=== PATIENT | female | born 1960 | race Caucasian/White ===

== ENCOUNTER 2017-01-19 07:16 | Day surgery (SDC) | payer OTHER ==
--- NOTE | ~2017-01-19 | EGD ---
EGD REPORT [facility] [address] [place] [address] NAME: LUCILLE CONNELLY : 60 STATUS : REG [facility] [place] PAT#: [id number] AGE: 56 ADM/REG DATE : 01/19/17 MR#: [id number] REPORT SERV DATE: 01/19/17 DICTATED BY: GURPREET TEIXEIRA DATE: 01/19/17 REPORT STATUS : Draft TRANSCRIBED BY: [facility] DATE: 01/19/17 Endoscopy Center Patient Name: Lucille Connelly Date of : 1960 Attending MD: GURPREET TEIXEIRA, Procedure Date No Time: 01/19/2017 Procedure: Upper EUS Indications: Suspected mass in pancreas on CT scan (area in tail of different appearance than rest of pancreas). Also some bloating Referring MD: Hallie SINGH MD Medicines: Monitored Anesthesia Care Complications: No immediate complications. Estimated blood loss: None. Procedure: Pre-Anesthesia Assessment: - ASA Grade Assessment: III - A patient with severe systemic disease. After obtaining informed consent, the endoscope was passed under direct vision. Throughout the procedure, the patient's blood pressure, pulse, and oxygen saturations were monitored continuously. The GIF [id number] was introduced through the mouth, and advanced to the second part of duodenum. The Endoscope was introduced through the mouth, and advanced to the second part of duodenum. Findings: Endoscopic Finding : The examined esophagus was endoscopically normal. The entire examined stomach was endoscopically normal. The cardia and gastric fundus were normal on retroflexion. The examined duodenum was normal. Biopsies were taken with a cold forceps for histology. Verification of patient identification for the specimen was done. Estimated blood loss was minimal. Endosonographic Finding : Pancreatic parenchymal abnormalities were noted in the entire pancreas. These consisted of diffuse echogenicity consistent with fatty infilatration. Endosonographic imaging of the pancreas showed no mass and no pancreatic duct changes. There was no sign of significant endosonographic abnormality in the common bile duct. An unremarkable gallbladder was identified. No lymphadenopathy seen. There was no sign of significant endosonographic abnormality in the examined duodenum. Endosonographic images of the stomach were unremarkable. EGD REPORT [address] [address] NAME: LUCILLE CONNELLY : 60 STATUS : REG [facility] [place] PAT#: [id number] AGE: 56 ADM/REG DATE : 01/19/17 MR#: [id number] REPORT SERV DATE: 01/19/17 DICTATED BY: GURPREET TEIXEIRA DATE: 01/19/17 REPORT STATUS : Draft TRANSCRIBED BY: [employer] DATE: 01/19/17 There was no sign of significant endosonographic abnormality in the esophagus. Impression: - Normal esophagus. - Normal stomach. - Normal examined duodenum. Biopsied. - Pancreatic parenchymal abnormalities consisting of diffuse echogenicity were noted in the entire pancreas. - There was no sign of significant pathology in the common bile duct. - There was no sign of significant pathology in the examined duodenum. - Endosonographic images of the stomach were unremarkable. - There was no sign of significant pathology in the esophagus. Recommendation: - Return to previous diet. - Continue present medications. - Return to referring physician. Procedure Code(s): --- Professional --- 41153, Esophagogastroduodenoscopy, flexible, transoral; with endoscopic ultrasound examination, including the esophagus, stomach, and either the duodenum or a surgically altered stomach where the jejunum is examined distal to the anastomosis 23273, 59, Esophagogastroduodenoscopy, flexible, transoral; with biopsy, single or multiple Diagnosis Code(s): --- Professional --- K86.9, Disease of pancreas, unspecified R93.3, Abnormal findings on diagnostic imaging of other parts of digestive tract CPT copyright 2013 [employer]. All rights reserved. The codes documented in this report are preliminary and upon associate brand manager review may be revised to meet current compliance requirements. GURPREET TEIXEIRA, 01/19/2017 11:01 AM Number of Addenda: 0 Note Initiated On: 01/19/2017 10:28 AM EGD REPORT [facility] [address] [address] NAME: LUCILLE CONNELLY : 60 STATUS : REG [facility] [place] PAT#: [id number] AGE: 56 ADM/REG DATE : 01/19/17 MR#: [id number] REPORT SERV DATE: 01/19/17 DICTATED BY: GURPREET TEIXEIRA DATE: 01/19/17 REPORT STATUS : Draft TRANSCRIBED BY: [employer] DATE: 01/19/17 Scope Withdrawal Time 0 hours 0 minutes 0 seconds [address] [address]
[~2017-01-19 07:16] MED LIST: *DENIES; BETAPACE80 PO; ELIQUIS 5 MG TAB5 MG PO; IMDUR30 PO
[2017-01-19 08:02] LABS: ALBUMIN 4.3 G/DL (3.5-5.0); ALKALINE PHOSPHATASE 91 U/L (45-117); BUN (BLOOD UREA NITROGEN) 10 MG/DL (6-23); CHLORIDE, SERUM 108 MMOL/L (96-112); CO2 (CARBON DIOXIDE) 30 MMOL/L (24-34); CREATININE 0.64 MG/DL (0.55-1.02); GFR AFRICAN AMERICAN 116 ML/MIN (>=60); GFR NON AFRICAN AMERICAN 100 ML/MIN (>=60); GLUCOSE, SERUM 111 MG/DL (60-99); POTASSIUM, SERUM 3.8 MMOL/L (3.5-5.3); SGOT(AST) 18 U/L (5-40); SGPT(ALT) 26 U/L (5-65); SODIUM, SERUM 143 MMOL/L (135-148); TOTAL BILIRUBIN 0.3 MG/DL (0-1.2)
[2017-01-19 08:03] LABS: DIRECT BILIRUBIN < 0.1 MG/DL (0.0-0.4); INDIRECT BILIRUBIN(NOT ORDER) 0.2 MG/DL (0.1-0.9)
[2017-03-24] MEDS ORDERED: MACROBID PO (23:17)
[2017-03-24] MEDS ORDERED: CLOTRIM/BETA TOP (23:17)
[2017-03-24] MEDS ORDERED: SORINE80 MG PO (23:18)
[2017-03-24] MEDS ORDERED: CARD30 PO (23:21)
[2017-03-24] MEDS ORDERED: ELIQUIS 5 MG TAB5 MG PO (23:22)
== END 2017-01-19 23:59 | disposition home or self-care (01) ==
LOC: DMU 07:16
PROVIDERS: Anesthesiology; Internal Medicine Gastroenterology
PROC: 0DJ08ZZ Inspection of Upper Intestinal Tract, Via Natural or Artificial Opening Endoscopic (ICD-10-PCS; 2017-01-19)
PROC: BD47ZZZ Ultrasonography of Gastrointestinal Tract (ICD-10-PCS; 2017-01-19)
PROC: 0DB98ZX Excision of Duodenum, Via Natural or Artificial Opening Endoscopic, Diagnostic (ICD-10-PCS; principal; 2017-01-19 10:30)
DX: K86.9 Disease of pancreas, unspecified (principal); Z79.899 Other long term (current) drug therapy; Z98.890 Other specified postprocedural states
CPT/HCPCS: 80048; 80076; 88305; C1725

== ENCOUNTER 2017-01-29 08:00 | Inpatient (IN) | payer OTHER ==
--- NOTE | ~2017-01-29 | TEE ---
Transesophageal Echocardiogram [facility] [address] [facility] [place]. [address] NAME: MAYA CONNELLY : 60 STATUS : ADM Ivan PAT#: [id number] AGE: 56 ADM/REG DATE : 01/29/17 MR#: [id number] REPORT SERV DATE: 01/29/17 DICTATED BY: HANS GALVAN DATE: 01/29/17 REPORT STATUS : Draft TRANSCRIBED BY: BRONWYN DATE: 01/29/17 TRANSESOPHAGEAL ECHOCARDIOGRAM-GUIDED CARDIOVERSION INDICATION: A 56-year-old woman with atrial flutter. PROCEDURE: After questions were answered and consents were signed, the patient was sedated with propofol per Anesthesia. The probe was placed in the mid esophagus, and images were obtained without difficulty. At the conclusion of the procedure, the probe was withdrawn. The patient was cardioverted with 200 joules of synchronized energy to sinus rhythm. No complications were noted. The patient is recovering in the short-stay unit. 2D INTERPRETATION: The left ventricular size and function is normal. The mitral valve opened adequately. No thrombus was noted in the left atrium nor the left atrial appendage, and there was good contractility of the left atrial appendage. The interatrial septum did appear to be intact. The right atrium was grossly normal. Tricuspid valve normal. No pericardial effusion noted. No atherosclerotic changes in the descending aorta or aortic arch. COLOR FLOW: Trace mitral, trace aortic and tricuspid regurgitation. No color flow was noted across the interatrial septum. DOPPLER: Doppler flow velocities in the left atrial appendage were greater than 40 cm/sec. CONCLUSION: 1. NORMAL LEFT VENTRICULAR SYSTOLIC FUNCTION WITH ESTIMATED LVEF OF 65%. 2. SUCCESSFUL CARDIOVERSION OF ATRIAL FLUTTER TO SINUS RHYTHM. FAMILIA/BRONWYN Hans Galvan M.D., Ph.D, F.A.C.C. / [id number] CC: Yevgeniy Castillo NP
--- NOTE | ~2017-01-29 | CN ---
Consultation Report [facility] [address] [place]. [address] NAME: LUCILLE CONNELLY : 60 STATUS : ADM Ivan PAT#: [id number] AGE: 56 ADM/REG DATE : 01/29/17 MR#: [id number] REPORT SERV DATE: 01/29/17 DICTATED BY: HAROLDO SCHWARTZ DATE: 01/29/17 REPORT STATUS : Draft TRANSCRIBED BY: MODL DATE: 01/29/17 ELECTROPHYSIOLOGY CONSULTATION DATE OF CONSULTATION: 01/29/2017 PRIMARY MOBILE EQUIPMENT OPERATOR: Dr. Ernesto Trejo. HISTORY OF PRESENT ILLNESS: Lucille Connelly is a 56-year-old female, I have seen in the office from electrophysiology standpoint. She has congenital heart disease, previous VSD, possible bicuspid aortic valve, and moderate mitral regurgitation. She was sent to [facility] for complex arrhythmia ablation and in November underwent ablation for typical as well as atypical AVNRT, counter-clockwise CTI flutter, atypical atrial flutter extending from the right atrial atriotomy, incision to the IVC as well as focal ablation of the low lateral RA and medial cavotricuspid isthmus. I had seen in her the office for EP followup, 01/26/2017 and she was doing well off antiarrhythmics and anticoagulation. She states that since that time, she had a sense of palpitations and arrhythmia. She has had heart rates up to 120 to 130 beats per minute. It was of vague pressure sensation in her chest associated with increased heart rate. She presents to the emergency room and found to be in atypical atrial flutter, intermittently conducting one-to-one, other times conducting with variable block. She is in no acute distress. No shortness of breath, orthopnea, or PND. PAST MEDICAL HISTORY: Congenital heart disease with previous surgery for VSD, but I believe her history is somewhat more complicated, but not clearly elucidated. Previous atrial arrhythmias as described above. HOME MEDICATIONS: Hydrochlorothiazide and aspirin. SOCIAL HISTORY: No smoking. FAMILY HISTORY: Reviewed, noncontributory. REVIEW OF SYSTEMS: As per the HPI. Otherwise, all other review of systems negative. PHYSICAL EXAMINATION: VITAL SIGNS: Blood pressure 137/86, pulse is 130, respiratory rate is 18. GENERAL: Appears stated age, no distress. EYES: Sclerae anicteric, no arcus senilis. MOUTH: Oral mucosa moist, lips acyanotic. NECK: Jugular venous pressure normal, no carotid bruits. LUNGS: Clear to auscultation bilaterally, normal inspiratory effort. CARDIAC: Regular, tachycardic rhythm, no murmurs, gallops or rubs. ABDOMEN: Soft, nondistended, nontender. EXTREMITIES: No edema. Consultation Report [address] [place]. [address] NAME: LUCILLE CONNELLY : 60 STATUS : ADM Ivan PAT#: [id number] AGE: 56 ADM/REG DATE : 01/29/17 MR#: [id number] REPORT SERV DATE: 01/29/17 DICTATED BY: HAROLDO SCHWARTZ DATE: 01/29/17 REPORT STATUS : Draft TRANSCRIBED BY: BRONWYN DATE: 01/29/17 SKIN: Warm and dry. NEURO/PSYCH: Alert and oriented, nonfocal, mood appropriate. LABORATORY AND DIAGNOSTIC STUDIES: ECG from 0727 hours this morning is atypical flutter with rate of 132 beats per minute, right bundle-branch block conduction pattern. ECG subsequent at 10:52 a.m. is atrial flutter with 3:2 AV block, right bundle-branch block conduction pattern, QTc 464. Sodium 139, potassium 3.9, creatinine 0.6. Hemoglobin is 12. Troponin negative. BNP 72. IMPRESSION: 1. Recurrent atypical atrial flutter. The patient had recent ablation. 2. Congenital heart disease with ventricular septal defect. 3. Right bundle-branch block conduction pattern. RECOMMENDATIONS: I reviewed the situation with the patient. We will begin Eliquis. Plan for ZOHREH cardioversion and low-dose sotalol 40 mg p.o. b.i.d. Plan for followup ECG with me in the office Wednesday. May be discharged to home from BP standpoint after cardioversion. CHELE/BRONWYN Haroldo Schwartz M.D. / [id number] CC: Izabel Arshad M.D.
[2017-01-29 08:24] LABS: BASOPHILS 0.2 %; BASOPHILS ABSOLUTE 0.01 10/3/uL (0.0-0.16); EOSINOPHILS 1.2 %; EOSINOPHILS ABSOLUTE 0.05 10/3/uL (0.0-0.53); HEMOGLOBIN 12.2 g/dL (12.0-16.0); LYMPHOCYTES 26.1 %; LYMPHOCYTES ABSOLUTE 1.11 10/3/uL (0.67-4.30); MEAN CORPUS HGB CONC 33.9 g/dL (32.0-36.0); MEAN CORPUSCULAR VOLUME 88.5 fL (80-100); MEAN PLATELET VOLUME 10.6 fL (9.2-13.0); MONOCYTES 4.9 %; MONOCYTES ABSOLUTE 0.21 10/3/uL (0.21-1.20); NEUTROPHILS 67.6 %; NEUTROPHILS ABSOLUTE 2.88 10/3/uL (2.02-8.40); PLATELET COUNT 166 10/3/uL (150-400); RBC DISTRIBUTION WIDTH 13.1 % (12.0-16.0); RED CELL COUNT 4.07 10/6/uL (4.0-5.6)
[2017-01-29 08:25] LABS: ER CBC TAT 0 Hrs 07 Mins; MANUAL DIFF NO %; WHITE BLOOD CELLS 4.3 10/3/uL (4.5-10.5)
[2017-01-29 08:32] LABS: PARTIAL THROMBO TIME 29.8 SEC (22.5-37.2); PROTIME (NOT ORD) 13.2 SEC (12.0-14.5)
[2017-01-29 08:40] LABS: BUN (BLOOD UREA NITROGEN) 12 MG/DL (6-23); CALCIUM, SERUM 9.1 MG/DL (8.5-10.4); CHEST PAIN PROFILE TAT 0 Hrs 22 Mins; CHLORIDE, SERUM 108 MMOL/L (96-112); CO2 (CARBON DIOXIDE) 30 MMOL/L (24-34); CREATININE 0.65 MG/DL (0.55-1.02); GFR AFRICAN AMERICAN 115 ML/MIN (>=60); GFR NON AFRICAN AMERICAN 99 ML/MIN (>=60); GLUCOSE, SERUM 107 MG/DL (60-99); POTASSIUM, SERUM 3.9 MMOL/L (3.5-5.3); SODIUM, SERUM 142 MMOL/L (135-148); TROPONIN I <0.02 NG/ML (<0.05)
[2017-01-29] MEDS ORDERED: ASAB PO (10:25)
[2017-01-29] MEDS ORDERED: HYDROCHLOROT12.5 MG PO (10:25)
[2017-01-30 04:42] LABS: BUN (BLOOD UREA NITROGEN) 11 MG/DL (6-23); CALCIUM, SERUM 9.2 MG/DL (8.5-10.4); CHLORIDE, SERUM 107 MMOL/L (96-112); CO2 (CARBON DIOXIDE) 27 MMOL/L (24-34); GFR AFRICAN AMERICAN 112 ML/MIN (>=60); GFR NON AFRICAN AMERICAN 97 ML/MIN (>=60); GLUCOSE, SERUM 104 MG/DL (60-99); POTASSIUM, SERUM 3.9 MMOL/L (3.5-5.3); SODIUM, SERUM 141 MMOL/L (135-148)
[2017-01-30] MEDS ORDERED: BETAPACE80 PO (11:26)
[2017-01-30] MEDS ORDERED: ELIQUIS 5 MG TAB5 MG PO (11:27)
[2017-01-30] MEDS ORDERED: CARD30 PO (11:27)
[2017-03-24] MEDS ORDERED: MACROBID PO (23:17)
[2017-03-24] MEDS ORDERED: CLOTRIM/BETA TOP (23:17)
[2017-03-24] MEDS ORDERED: SORINE80 MG PO (23:18)
[2017-03-24] MEDS ORDERED: CARD30 PO (23:21)
[2017-03-24] MEDS ORDERED: ELIQUIS 5 MG TAB5 MG PO (23:22)
== END 2017-01-30 11:43 | disposition home or self-care (01) | DRG 310 ==
LOC: ER 08:00 → CDU1 10:50
PROVIDERS: Internal Medicine Cardiovascular Disease; Nurse Practitioner
PROC: B246ZZ4 Ultrasonography of Right and Left Heart, Transesophageal (ICD-10-PCS; principal; 2017-01-29)
PROC: 5A2204Z Restoration of Cardiac Rhythm, Single (ICD-10-PCS; 2017-01-29)
DX: I48.4 Atypical atrial flutter (principal); I34.0 Nonrheumatic mitral (valve) insufficiency; I45.10 Unspecified right bundle-branch block; Z79.02 Long term (current) use of antithrombotics/antiplatelets; Z91.018 Allergy to other foods; Z87.74 Personal history of (corrected) congenital malformations of heart and circulatory system; Z79.82 Long term (current) use of aspirin
CPT/HCPCS: 71010; 80048; 83735; 83880; 84484; 85025; 85610; 85730; 92960; 93005; 93312; 93320; 93325; 96374; 96375; 99285; A9270-GY

== ENCOUNTER 2017-02-12 18:54 | Observation (INO) | payer OTHER ==
--- NOTE | ~2017-02-12 | HP ---
History And Physical [address] [place]. [address] NAME: MAYA CONNELLY : 60 STATUS : ADM Ivan PAT#: [id number] AGE: 56 ADM/REG DATE : 02/12/17 MR#: [id number] REPORT SERV DATE: 02/13/17 DICTATED BY: THOMAS JAEGER DATE: 02/13/17 REPORT STATUS : Draft TRANSCRIBED BY: MODL DATE: 02/13/17 DATE OF ADMISSION: 02/12/2017 IDENTIFYING DATA: The patient is a 56-year-old woman with a history of congenital heart disease and atypical AV fidelina re-entrant tachycardia, status post previous ablation procedure at [facility]. CHIEF COMPLAINT: Palpitations with onset at 1600 hours on 02/12/2017. HISTORY OF PRESENT ILLNESS: Ms. Connelly is a pleasant 56-year-old woman, who has a history of congenital heart disease with a VSD, status post childhood repair. The patient also has a history of atypical AV fidelina reentrant tachycardia and atypical atrial flutter. The patient has had ablation procedures performed at [facility]. She is also followed by Dr. Akira Schwartz. The patient reports that her heart rhythm has been stable on sotalol and diltiazem. However, the patient had been having symptomatic hypotension due to diltiazem. She was offered a repeat ablation procedure by Dr. Schwartz, but elected to continue on medical therapy. The patient apparently stopped diltiazem, had recurrence of her arrhythmia and underwent DC cardioversion recently. She was placed back on diltiazem, but had to stop this due to symptomatic hypotension. The patient shortly thereafter went back into her SVT. At this time, the patient is back on a diltiazem drip. She reports improved palpitations, and is otherwise without symptoms. She denies chest pain or shortness of breath. PAST MEDICAL HISTORY: 1. Congenital heart disease with previous VSD repair. 2. Bicuspid aortic valve. 3. 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 4. Dyslipidemia. PAST SURGICAL HISTORY: Significant for repair of congenital heart disease as noted above. Otherwise, noncontributory. FAMILY HISTORY: The patient's brother suffered myocardial infarction at age 56. There is no family history of sudden cardiac . Her sister has been diagnosed with coronary disease at age 69. SOCIAL HISTORY: The patient apparently has no known history of tobacco, alcohol, or drug use. ALLERGIES: THE PATIENT REPORTS A TURKEY ALLERGY. HOME MEDICATIONS: The patient's only home medications at this time are Eliquis 5 mg twice daily, hydrochlorothiazide 12.5 mg daily, and sotalol 80 mg p.o. q.12 hours. REVIEW OF SYSTEMS: History And Physical [address] [address] NAME: MAYA CONNELLY : 60 STATUS : ADM Ivan PAT#: [id number] AGE: 56 ADM/REG DATE : 02/12/17 MR#: [id number] REPORT SERV DATE: 02/13/17 DICTATED BY: THOMAS JAEGER DATE: 02/13/17 REPORT STATUS : Draft TRANSCRIBED BY: BRONWYN DATE: 02/13/17 A complete 12-system review was performed. This is noncontributory except for the pertinent positives and negatives noted in the history of present illness above. PHYSICAL EXAMINATION: VITAL SIGNS: Temperature is 98.0 degrees Fahrenheit, blood pressure is 111/69 mmHg, heart rate is presently 115 beats per minute and regular, respirations 13, oxygen saturation is 90% on room air. CONSTITUTIONAL: The patient is an overweight white woman, in no acute distress. EYES: PERRL, EOMI, clear conjunctiva. HEAD/MNT: NCAT with moist mucous membranes and grossly normal hard and soft palate. NECK: Supple with no obvious thyromegaly or lymphadenopathy. CARDIOVASCULAR: There is a regular rhythm with a mild tachycardia. There is a normal S1 and a physiologically split second heart sound. No significant murmurs are noted. The jugular venous pressure appears grossly normal. PULMONARY: Clear to auscultation bilaterally, no wheezing, rales or rhonchi noted. No dullness to percussion. Nonlabored. ABDOMINAL: Soft, nontender, nondistended with no hepatosplenomegaly noted. EXTREMITIES: No clubbing, cyanosis or edema. MUSCULOSKELETAL: Grossly normal strength and range of motion in all extremities. INTEGUMENTARY: Skin appears intact with no bruises, wounds or active lesions noted. NEURO/PSYC: Alert and oriented x3, with no dysarthria, facial droop or lateralizing weakness noted. 12-LEAD EKG: The 12-lead EKG at this time shows SVT with what appears to be a long RP interval. There is a right bundle-branch block pattern and secondary ST/T-wave changes. LABORATORY: B-type natriuretic peptide is very slightly elevated to 105. CBC shows a white blood cell count of 5.2, hemoglobin 12, hematocrit 36, platelets 155. INR is 1.1. Chest x- ray is read as mild cardiomegaly with evidence of previous intrathoracic surgery and no acute pulmonary process. Urinalysis is normal. Chemistry is unremarkable with a potassium of 3.6, magnesium 2.1, glucose 105, BUN of 13 and creatinine of 0.7, with a troponin of less than 0.02. The patient's TSH is very mildly elevated at 3.8. ASSESSMENT AND PLAN: 1. Recurrent supraventricular tachycardia: The patient's heart rate at this time is reasonably well controlled on IV diltiazem drip. She will be admitted to telemetry for monitoring and heart rate control. We will discuss the case with Dr. Schwartz tomorrow. The patient will have the option of either remaining in [place] for further EP procedures versus transfer to [facility] for repeat attempt at ablation. The patient will continue her current dose of Eliquis. 2. Congenital heart disease: The patient apparently has no active structural heart issues at this time. Her issues apparently are solely related to her EP abnormalities. [facility]/BRONWYN History And Physical [address] [address] NAME: MAYA CONNELLY : 60 STATUS : ADM Ivan PAT#: [id number] AGE: 56 ADM/REG DATE : 02/12/17 MR#: [id number] REPORT SERV DATE: 02/13/17 DICTATED BY: THOMAS JAEGER DATE: 02/13/17 REPORT STATUS : Draft TRANSCRIBED BY: MOD[employer]ander DATE: 02/13/17 Thomas Jaeger MD / [id number] CC: MD Gerardo Landry Susan
[2017-02-12 16:52] LABS: BASOPHILS 0.2 %; BASOPHILS ABSOLUTE 0.01 10/3/uL (0.0-0.16); EOSINOPHILS ABSOLUTE 0.05 10/3/uL (0.0-0.53); ER CBC TAT 0 Hrs 03 Mins; HEMATOCRIT 35.6 % (36.0-48.0); HEMOGLOBIN 11.8 g/dL (12.0-16.0); IMMATURE GRANULOCYTES 0.2 %; IMMATURE GRANULOCYTES ABSOLUTE 0.01 10/3/uL (0.0-0.11); LYMPHOCYTES 22.1 %; LYMPHOCYTES ABSOLUTE 1.14 10/3/uL (0.67-4.30); MEAN CORPUS HGB CONC 33.1 g/dL (32.0-36.0); MEAN CORPUSCULAR HEMOGLOB 29.1 pg (26.0-34.0); MEAN CORPUSCULAR VOLUME 87.7 fL (80-100); MEAN PLATELET VOLUME 10.5 fL (9.2-13.0); MONOCYTES ABSOLUTE 0.26 10/3/uL (0.21-1.20); NEUTROPHILS 71.5 %; NEUTROPHILS ABSOLUTE 3.68 10/3/uL (2.02-8.40); PLATELET COUNT 155 10/3/uL (150-400); RBC DISTRIBUTION WIDTH 13.2 % (12.0-16.0); RED CELL COUNT 4.06 10/6/uL (4.0-5.6); WHITE BLOOD CELLS 5.2 10/3/uL (4.5-10.5)
[2017-02-12 16:56] LABS: MANUAL DIFF NO %
[2017-02-12 17:00] LABS: INTERNATIONAL NORMAL RATI 1.1 UNITS (-); PROTIME (NOT ORD) 14.5 SEC (12.0-14.5)
[2017-02-12 17:01] LABS: PARTIAL THROMBO TIME 32.5 SEC (22.5-37.2)
[2017-02-12 17:08] LABS: BUN (BLOOD UREA NITROGEN) 13 MG/DL (6-23); CALCIUM, SERUM 9.4 MG/DL (8.5-10.4); CHEST PAIN PROFILE TAT 0 Hrs 19 Mins; CHLORIDE, SERUM 107 MMOL/L (96-112); CO2 (CARBON DIOXIDE) 27 MMOL/L (24-34); CREATININE 0.69 MG/DL (0.55-1.02); GFR AFRICAN AMERICAN 113 ML/MIN (>=60); GFR NON AFRICAN AMERICAN 97 ML/MIN (>=60); GLUCOSE, SERUM 105 MG/DL (60-99); POTASSIUM, SERUM 3.6 MMOL/L (3.5-5.3); SODIUM, SERUM 140 MMOL/L (135-148); TROPONIN I <0.02 NG/ML (<0.05)
[2017-02-12 18:38] LABS: ASCORBIC ACID (UR NOT ORDER) NEG (NEG); BILIRUBIN, URINE NEGATIVE (NEG); ER URINALYSIS TAT 0 Hrs 28 Mins; KETONE, URINE NEGATIVE (NEG); LEUKOCYTE ESTERASE(NOT OR NEG (NEG); NITRITE (URINE) NEG (NEG); WBC (NOT ORDERED) (RFLEX) 1 (0-5)
[~2017-02-12 18:54] MED LIST changes: +ASAB PO; +CARD30 PO; +HYDROCHLOROT12.5 MG PO
[2017-02-14] MEDS ORDERED: CARD120 PO (20:29)
[2017-02-14] MEDS ORDERED: CARD30 PO (20:31)
[2017-02-14] MEDS ORDERED: CARDCD120 PO (20:32)
[2017-03-24] MEDS ORDERED: MACROBID PO (23:17)
[2017-03-24] MEDS ORDERED: CLOTRIM/BETA TOP (23:17)
[2017-03-24] MEDS ORDERED: SORINE80 MG PO (23:18)
[2017-03-24] MEDS ORDERED: CARD30 PO (23:21)
[2017-03-24] MEDS ORDERED: ELIQUIS 5 MG TAB5 MG PO (23:22)
== END 2017-02-14 22:00 | disposition home or self-care (01) ==
LOC: ER 18:54 → 5NO 22:47
PROVIDERS: Emergency Medicine; Hospitalist
DX: I47.1 Supraventricular tachycardia (principal); E78.5 Hyperlipidemia, unspecified; Z82.49 Family history of ischemic heart disease and other diseases of the circulatory system; Z79.899 Other long term (current) drug therapy; Z98.890 Other specified postprocedural states
CPT/HCPCS: 71020; 80048; 81001; 83735; 83880; 84443; 84484; 85025; 85610; 85730; 93005; 99285; A9270-GY; G0378

== ENCOUNTER 2017-02-19 16:45 | Emergency (ER) | payer OTHER ==
[~2017-02-19 16:45] MED LIST changes: +CARD120 PO; +CARDCD120 PO
[2017-02-19 17:09] LABS: BASOPHILS 0.1 %; BASOPHILS ABSOLUTE 0.01 10/3/uL (0.0-0.16); EOSINOPHILS 0.6 %; EOSINOPHILS ABSOLUTE 0.04 10/3/uL (0.0-0.53); ER CBC TAT 0 Hrs 12 Mins; HEMATOCRIT 35.3 % (36.0-48.0); HEMOGLOBIN 11.9 g/dL (12.0-16.0); IMMATURE GRANULOCYTES 0.1 %; IMMATURE GRANULOCYTES ABSOLUTE 0.01 10/3/uL (0.0-0.11); LYMPHOCYTES 17.8 %; LYMPHOCYTES ABSOLUTE 1.26 10/3/uL (0.67-4.30); MEAN CORPUS HGB CONC 33.7 g/dL (32.0-36.0); MEAN CORPUSCULAR HEMOGLOB 29.2 pg (26.0-34.0); MEAN CORPUSCULAR VOLUME 86.7 fL (80-100); MEAN PLATELET VOLUME 10.3 fL (9.2-13.0); MONOCYTES ABSOLUTE 0.28 10/3/uL (0.21-1.20); NEUTROPHILS 77.4 %; NEUTROPHILS ABSOLUTE 5.47 10/3/uL (2.02-8.40); PLATELET COUNT 169 10/3/uL (150-400); RBC DISTRIBUTION WIDTH 13.1 % (12.0-16.0); RED CELL COUNT 4.07 10/6/uL (4.0-5.6); WHITE BLOOD CELLS 7.1 10/3/uL (4.5-10.5)
[2017-02-19 17:11] LABS: MANUAL DIFF NO %
[2017-02-19 17:16] LABS: BUN (BLOOD UREA NITROGEN) 13 MG/DL (6-23); CALCIUM, SERUM 9.3 MG/DL (8.5-10.4); CHEST PAIN PROFILE TAT 0 Hrs 19 Mins; CHLORIDE, SERUM 107 MMOL/L (96-112); CO2 (CARBON DIOXIDE) 28 MMOL/L (24-34); CREATININE 0.74 MG/DL (0.55-1.02); GFR AFRICAN AMERICAN 105 ML/MIN (>=60); GFR NON AFRICAN AMERICAN 91 ML/MIN (>=60); GLUCOSE, SERUM 100 MG/DL (60-99); POTASSIUM, SERUM 3.9 MMOL/L (3.5-5.3); SODIUM, SERUM 142 MMOL/L (135-148); TROPONIN I <0.02 NG/ML (<0.05)
[2017-02-19 17:22] LABS: INTERNATIONAL NORMAL RATI 1.3 UNITS (-); PROTIME (NOT ORD) 15.6 SEC (12.0-14.5)
[2017-03-24] MEDS ORDERED: MACROBID PO (23:17)
[2017-03-24] MEDS ORDERED: CLOTRIM/BETA TOP (23:17)
[2017-03-24] MEDS ORDERED: SORINE80 MG PO (23:18)
[2017-03-24] MEDS ORDERED: CARD30 PO (23:21)
[2017-03-24] MEDS ORDERED: ELIQUIS 5 MG TAB5 MG PO (23:22)
== END 2017-02-19 23:36 | disposition home or self-care (01) ==
LOC: ER 16:45
PROVIDERS: Emergency Medicine
DX: M54.2 Cervicalgia (principal); M43.6 Torticollis; I48.92 Unspecified atrial flutter; Z79.899 Other long term (current) drug therapy; Z91.018 Allergy to other foods
CPT/HCPCS: 70450; 70490; 71020; 80048; 83735; 84484; 85025; 85610; 85730; 93005; 96372; 96374; 96375; 99285; A9270-GY; J1040; J1170; J1885; J2405; J3360